=== PATIENT | male | born 1995 | race African-American/Black ===

== ENCOUNTER 2023-10-18 10:27 | Emergency (ER) | payer OTHER ==
[2023-10-18] MEDS ORDERED: Ketorolac Tromethamine 30 MG (1 mL) VIAL ONE (11:55)
== END 2023-10-18 12:04 | disposition home or self-care (01) ==
LOC: CSHERS 10:27
DX: Z00.00 Encounter for general adult medical examination without abnormal findings (principal); F17.210 Nicotine dependence, cigarettes, uncomplicated
CPT/HCPCS: 99281; J1885